=== PATIENT | male | born 1965 | race Caucasian/White ===

== ENCOUNTER 2017-05-03 10:54 | Emergency (ER) | payer MEDICAID ==
[2017-05-03 13:30] VITALS: BP 144/78
== END 2017-05-03 13:30 | disposition home or self-care (01) ==
LOC: ED 10:54
DX: J02.9 Acute pharyngitis, unspecified (principal)

== ENCOUNTER 2019-07-01 18:18 | Emergency (ER) | payer MEDICAID ==
[~2019-07-01] VITALS: Ht 177.8 cm; Wt 106.6 kg
[2019-07-01 18:41] VITALS: Ht 177.8 cm; Wt 106.6 kg
[2019-07-01 20:20] VITALS: BP 121/77
== END 2019-07-01 20:20 | disposition home or self-care (01) ==
LOC: ED 18:18
DX: S91.331A Puncture wound without foreign body, right foot, initial encounter (principal); W22.8XXA Striking against or struck by other objects, initial encounter; Y93.89 Activity, other specified; Y92.89 Other specified places as the place of occurrence of the external cause; Y99.8 Other external cause status
CPT/HCPCS: 90715

== ENCOUNTER 2019-07-04 18:34 | Emergency (ER) | payer MEDICAID ==
[~2019-07-04] VITALS: Ht 177.8 cm; Wt 109.8 kg
[2019-07-04 19:07] VITALS: Ht 177.8 cm; Wt 109.8 kg
[2019-07-04 19:32] VITALS: BP 145/88
== END 2019-07-04 19:32 | disposition home or self-care (01) ==
LOC: ED 18:34
DX: S91.331D Puncture wound without foreign body, right foot, subsequent encounter (principal); X58.XXXD Exposure to other specified factors, subsequent encounter